=== PATIENT | male | born 1970 | race Caucasian/White ===

== ENCOUNTER 2018-09-23 01:29 | Emergency (ER) | payer BC, MEDICAID ==
[2018-09-23] MEDS ORDERED: Sodium Chloride 0.9% 1,000 ML IV STA ×2 (03:02→04:10)
--- NOTE | 2018-09-23 03:04 | ED PDOC ---
HPI: Abdomen Time Seen by Provider: 09/23/18 01:46 Chief Complaint (Nursing): Abdominal Pain Chief Complaint (Provider): Abdominal Pain History Per: Patient History/Exam Limitations: no limitations Onset/Duration Of Symptoms: Days (x1) Location Of Pain/Discomfort: Epigastric Associated Symptoms: Vomiting, Diarrhea Additional Complaint(s): 47 y/o male presents to the ED complaining of vomiting, diarrhea, and abdominal pain, onset yesterday evening. Patient reports that in the evening he developed multiple episodes of non-bloody vomiting and diarrhea. He reports he also has abdominal pain. Patient states symptoms started after having 1 glass of beer and eating dinner. He reports taking Motrin at around 6-7pm. Patient says he felt feverish but he did not take his temperature. He denies hematemesis, melena, rectal bleeding, sick contacts, or recent travel. Past Medical History Reviewed: Historical Data, Nursing Documentation, Vital Signs Vital Signs: Last Vital Signs Temp 99.2 F 09/23/18 01:37 Pulse 106 H 09/23/18 01:37 Resp 16 09/23/18 01:37 BP 151/80 H 09/23/18 01:37 Pulse Ox 99 09/23/18 01:37 - Medical History PMH: HTN, Hypercholesterolemia - Surgical History Surgical History: No Surg Hx - Family History Family History: States: Unknown Family Hx - Allergies Allergies/Adverse Reactions: Allergies Allergy/AdvReac Type Severity Reaction Status Date / Time No Known Allergies Allergy Verified 09/23/18 01:41 Review of Systems ROS Statement: Except As Marked, All Systems Reviewed And Found Negative Constitutional: Positive for: Fever (subjective) Gastrointestinal: Positive for: Vomiting, Abdominal Pain, Diarrhea. Negative for: Melena, Hematemesis Physical Exam - Reviewed Nursing Documentation Reviewed: Yes Vital Signs Reviewed: Yes - Physical Exam Appears: Positive for: No Acute Distress Head Exam: Positive for: ATRAUMATIC, NORMAL INSPECTION, NORMOCEPHALIC Skin: Positive for: Normal Color, Warm, DRY Eye Exam: Positive for: EOMI, Normal appearance, PERRL ENT: Positive for: Other (dry mucous membranes) Gastrointestinal/Abdominal: Positive for: Normal Exam, Soft. Negative for: Tenderness Neurological/Psych: Positive for: Awake, Alert, Normal Tone, Oriented (x3). Negative for: Motor/Sensory Deficits - ECG O2 Sat by Pulse Oximetry: 99 (RA) Pulse Ox Interpretation: Normal Medical Decision Making Medical Decision Making: Time: 03:01 Impression: vomiting and diarrhea Initial Plan: * Labs * Bentyl 20 mg * Pepcid 20 mg * Zofran 4 mg * IV Fluids Scribe Attestation: Documented by Pablito Cohen acting as a scribe for Chalino Bolivar PA-C. Provider Scribe Attestation: All medical record entries made by the Scribe were at my direction and personally dictated by me. I have reviewed the chart and agree that the record accurately reflects my personal performance of the history, physical exam, medical decision making, and the department course for this patient. I have also personally directed, reviewed, and agree with the discharge instructions and disposition. Disposition - Disposition
[2018-09-23 03:39] LABS: BASO % 0.3 % (0.0-2.0); EOS % 0.4 % (0.0-4.0); HEMOGLOBIN 14.9 g/dL (12.0-18.0); LYMPH # 0.4 K/uL (1.0-4.3); MEAN CELL VOLUME 89.1 fl (80.0-94.0); MEAN CORPUSCULAR HEMOGLOBIN 30.8 pg (27.0-31.0); MEAN CORPUSCULAR HGB CONC 34.5 g/dL (33.0-37.0); MEAN PLATELET VOLUME 10.4 fl (7.2-11.7); MONO # 0.3 K/uL (0.0-0.8); MONO % 2.8 % (0.0-10.0); NEUT # 9.7 K/uL (1.8-7.0); NEUT % 92.5 % (50.0-75.0); NRBC % 0.2 % (0.0-0.0); PLATELET COUNT 266 K/uL (130-400); RBC 4.84 Mil/uL (4.40-5.90); RED CELL DISTRIBUTION WIDTH 13.6 % (11.5-14.5); WHITE BLOOD COUNT 10.5 K/uL (4.8-10.8)
[2018-09-23 03:46] LABS: ALB/GLOB RATIO 1.3 (1.0-2.1); ALBUMIN 5.4 g/dL (3.5-5.0); BLOOD UREA NITROGEN 23 mg/dl (9-20); CALCIUM 10.3 mg/dL (8.4-10.2); GFR NON-AFRICAN AMERICAN > 60; LIPASE 91 U/L (23-300)
[2018-09-23 03:54] LABS: ALT/SGPT 35 U/L (21-72); AST/SGOT 47 U/L (17-59)
[2018-09-23 04:08] VITALS: RESP 18
[2018-09-23 04:27] LABS: ALB/GLOB RATIO 1.4 (1.0-2.1); ALBUMIN 4.7 g/dL (3.5-5.0); ALT/SGPT 38 U/L (21-72); AST/SGOT 35 U/L (17-59); BLOOD UREA NITROGEN 21 mg/dl (9-20); CALCIUM 9.4 mg/dL (8.4-10.2); GFR NON-AFRICAN AMERICAN > 60
[2018-09-23] MEDS ORDERED: Potassium Chloride 20 mEq ER Tab PO ONE ×2 (04:29→04:44)
[2018-09-23 04:39] LABS: BANDS 2 % (0-2); LARGE PLATELETS PRESENT; LYMPHOCYTE 8 % (20-50); MONOCYTE 2 % (0-10); NEUTROPHIL 88 % (42-75); PLATELET ESTIMATE NORMAL (NORMAL); TOTAL CELLS COUNTED 100
[2018-09-23 04:40] LABS: VENOUS BLOOD GAS BASE EXCESS 1.5 mmol/L (0.0-2.0); VENOUS BLOOD GAS PCO2 43 mmHg (40-60); VENOUS BLOOD GAS PO2 33 mm/Hg (30-55)
[2018-09-23 04:41] LABS: STOMATOCYTES SLIGHT
[2018-09-23 05:08] LABS: TOXIC GRANULATION PRESENT
[2018-09-23 05:32] VITALS: BP 119/60; PULSE 90; TEMP 99.7; O2SAT 99
--- NOTE | 2018-09-23 05:35 | ED PDOC ---
HPI: Abdomen Time Seen by Provider: 09/23/18 01:46 Chief Complaint (Nursing): Abdominal Pain Chief Complaint (Provider): Abdominal Pain History Per: Patient History/Exam Limitations: no limitations Onset/Duration Of Symptoms: Days (x1) Additional Complaint(s): 47 y/o male presents to the ED complaining of vomiting, diarrhea, and abdominal pain, onset yesterday evening. Patient reports that in the evening he developed multiple episodes of non-bloody vomiting and diarrhea. He reports he also has abdominal pain. Patient states symptoms started after having 1 glass of beer and eating dinner. He reports taking Motrin at around 6-7pm. Patient says he felt feverish but he did not take his temperature. He denies hematemesis, melena, rectal bleeding, sick contacts, or recent travel. Past Medical History Reviewed: Historical Data, Nursing Documentation, Vital Signs Vital Signs: Last Vital Signs Temp 99.7 F H 09/23/18 05:31 Pulse 90 09/23/18 05:31 Resp 18 09/23/18 05:31 BP 119/60 09/23/18 05:31 Pulse Ox 99 09/23/18 05:31 - Medical History PMH: HTN, Hypercholesterolemia - Surgical History Surgical History: No Surg Hx - Family History Family History: States: Unknown Family Hx - Home Medications Home Medications: Ambulatory Orders Medication Instructions Recorded Dicyclomine [Bentyl] 20 mg PO TID PRN #10 tab 09/23/18 Famotidine [Pepcid] 20 mg PO DAILY PRN #10 tab 09/23/18 Ondansetron ODT [Zofran ODT] 4 mg PO TID #10 odt 09/23/18 - Allergies Allergies/Adverse Reactions: Allergies Allergy/AdvReac Type Severity Reaction Status Date / Time No Known Allergies Allergy Verified 09/23/18 01:41 Review of Systems ROS Statement: Except As Marked, All Systems Reviewed And Found Negative Constitutional: Positive for: Fever Gastrointestinal: Positive for: Vomiting, Abdominal Pain, Diarrhea. Negative for: Melena, Hematemesis, Rectal Pain Physical Exam - Reviewed Nursing Documentation Reviewed: Yes Vital Signs Reviewed: Yes - Physical Exam Appears: Positive for: No Acute Distress Head Exam: Positive for: ATRAUMATIC, NORMAL INSPECTION, NORMOCEPHALIC Skin: Positive for: Normal Color, Warm, Dry Eye Exam: Positive for: EOMI, Normal appearance, PERRL ENT: Positive for: Other (dry mucous membranes) Gastrointestinal/Abdominal: Positive for: Normal Exam, Soft. Negative for: Tenderness Neurological/Psych: Positive for: Awake, Alert, Normal Tone, Oriented (x3). Negative for: Motor/Sensory Deficits - Laboratory Results Result Diagrams: 09/23/18 03:10 09/23/18 04:00 Lab Results: pO2 33 mm/Hg (30-55) 09/23/18 04:27 VBG pH 7.40 (7.32-7.43) 09/23/18 04:27 VBG pCO2 43 mmHg (40-60) 09/23/18 04:27 VBG HCO3 25.2 mmol/L 09/23/18 04:27 VBG Total CO2 27.9 mmol/L (22-28) 09/23/18 04:27 VBG O2 Sat (Calc) 66.0 % (40-65) H 09/23/18 04:27 VBG Base Excess 1.5 mmol/L (0.0-2.0) 09/23/18 04:27 VBG Potassium 3.4 mmol/L (3.6-5.2) L 09/23/18 04:27 Sodium 138.0 mmol/L (132-148) 09/23/18 04:27 Chloride 105.0 mmol/L (98-107) 09/23/18 04:27 Glucose 119 mg/dL (75-110) H 09/23/18 04:27 Lactate 1.5 mmol/L (0.7-2.1) 09/23/18 04:27 FiO2 21.0 % 09/23/18 04:27 Total Bilirubin 0.9 mg/dl (0.2-1.3) 09/23/18 04:00 AST 35 U/L (17-59) 09/23/18 04:00 ALT 38 U/L (21-72) 09/23/18 04:00 Alkaline Phosphatase 85 U/L (38-126) 09/23/18 04:00 Total Protein 8.1 G/DL (6.3-8.2) 09/23/18 04:00 Albumin 4.7 g/dL (3.5-5.0) 09/23/18 04:00 Globulin 3.3 gm/dL (2.2-3.9) 09/23/18 04:00 Albumin/Globulin Ratio 1.4 (1.0-2.1) 09/23/18 04:00 Lipase 91 U/L (23-300) 09/23/18 03:10 - ECG O2 Sat by Pulse Oximetry: 99 Medical Decision Making Medical Decision Making: Time: 03:01 Impression: vomiting and diarrhea Initial Plan: Labs Bentyl 20 mg Pepcid 20 mg Zofran 4 mg IV Fluids 0520 On re-evaluation, pt. reports feeling much better. Abd soft and non-tender. Tolerating PO fluids in ED. Scribe Attestation: Documented by Pablito Cohen acting as a scribe for Chalino Bolivar PA-C. Provider Scribe Attestation: All medical record entries made by the Scribe were at my direction and personally dictated by me. I have reviewed the chart and agree that the record accurately reflects my personal performance of the history, physical exam, medical decision making, and the department course for this patient. I have also personally directed, reviewed, and agree with the discharge instructions and disposition. Disposition - Clinical Impression Clinical Impression: Gastroenteritis - Patient ED Disposition Is Patient to be Admitted: No - Disposition Referrals: [facility] [Outside] Disposition: Routine/Home Disposition Time: 05:20 Condition: IMPROVED Additional Instructions: FOLLOW UP WITH YOUR DOCTOR FOR FURTHER EVALUATION RETURN TO ED IMMEDIATELY IF SYMPTOMS WORSEN STEFANIE JOHNSON, thank you for letting us take care of you today. Your provider was Eduar Silverman MD and you were treated for ABD PAIN. The emergency medical care you received today was directed at your acute symptoms. If you were prescribed any medication, please fill it and take as directed. It may take several days for your symptoms to resolve. Return to the Emergency Department if your symptoms worsen, do not improve, or if you have any other problems. Please contact your doctor or call one of the physicians/clinics you have been referred to that are listed on the Patient Visit Information form that is included in your discharge packet. Bring any paperwork you were given at discharge with you along with any medications you are taking to your follow up visit. Our treatment cannot replace ongoing medical care by a primary care provider outside of the emergency department. Thank you for allowing the [facility] team to be part of your care today. If you had an X-Ray or CT scan: A Radiologist will review the ED reading if any change in treatment is needed we will contact you. If you had a blood, urine, or wound culture: It will take several days for the results, if any change in treatment is needed we will contact you. If you had an STI test: It will take 48 hours for the results. Please call after 1 week if you have not heard back. Prescriptions: Dicyclomine [Bentyl] 20 mg PO TID PRN #10 tab PRN Reason: abdominal pain Famotidine [Pepcid] 20 mg PO DAILY PRN #10 tab PRN Reason: Dyspepsia Ondansetron ODT [Zofran ODT] 4 mg PO TID #10 odt Instructions: Gastroenteritis (ED) Forms: [employer] (Nepali) Print Language: QATARI
--- NOTE | 2018-09-23 19:59 | CARD ---
APPROVED REPORT Date of service: 09/23/2018 EKG Measurement Heart [id number] <Conclusion> Normal sinus rhythm Nonspecific T wave abnormality Abnormal ECG
== END 2018-09-23 06:06 | disposition home or self-care (01) ==
LOC: H.ER 01:29
DX: K52.9 Noninfective gastroenteritis and colitis, unspecified (principal); E78.00 Pure hypercholesterolemia, unspecified; I10 Essential (primary) hypertension
CPT/HCPCS: 80053; 82803; 83690; 85025; 87040; 93005; 96361; 96374; 96375; 99284; J2405; J7030